=== PATIENT | female | born 1955 | race Caucasian/White ===

== ENCOUNTER → 2024-01-05 09:26 | Outpatient (BNVA) | payer MEDICARE, SELFPAY | PROVIDERS: PCP Family Medicine; Visit Provider Physician Assistant Surgical ==

== ENCOUNTER 2024-01-28 13:08 | Outpatient (AMB) | payer MEDICARE, SELFPAY ==
--- NOTE | 2024-01-28 08:20 | A.OFFVIS_ITS ---
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 She heard about our program from a friend. Her goal is to lose weight and achieve a healthy lifestyle as well as to improve, if not resolve, obesity related medical conditions, including hld. She reports first being concerned about her weight lifelong, highest weight to date was 242. Lowest weight was 138 pounds. Current weight is 242.7 pounds with a BMI of 40.3. She has tried multiple methods of weight loss including previous gastric banding approximately 15 years ago and removal about 5 years ago, fad diets without permanent results. She lives alone. 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 Dinner is at 5 pm. Breakfast: skip AM snack: skip Lunch: PB crackers, cottage cheese and fruit, cereal w banana and almond milk PM snack: skip Dinner: skip After dinner: pizza, chicken, Other snacks: cookies, crackers, ice cream, chocolate Liquids: selzer 48 oz daily, no soda, rare juice Alcohol/marijuana/tobacco intake: rare etoh, no cannabis, no tobacco Exercise: none, has gym membership at GERD score: 0 RAMÓN score: 1 ESS score: 2 QOL score: 124 PFSH Surgical History Hx of colonoscopy Hx of carpal tunnel repair History of nasal surgery History of removal of laparoscopic gastric banding device Hx of foot surgery Hx of laparoscopic gastric banding Family History Mother Breast cancer Father No problems noted. Son No problems noted. Daughter No problems noted. Social History Alcohol intake: current Alcohol intake frequency: holidays/special occasions only Patient Tobacco Use Status: Never used Tobacco Physical Exam Vital Signs: BMI result Body Mass Index 40.3 Telehealth Telehealth Telehealth Platform: Telephone Location of provider rendering services: practice address Location of patient: address on file Patient Identification confirmed using: Name, : Yes Telehealth method: voice only Patient verbally consented to treatment: Yes Patient verbally consented to billing insurance company: Yes Patient informed of any privacy concerns related to visit: Yes Minutes spent on Phone/Video with Pt.: 40 Assessment & Plan Assessment & Plan (1) Morbid obesity: Code(s): E66.01 - Morbid (severe) obesity due to excess calories Category: Medical Plan: This is a?68 yo female who will start our SWL program to prepare for bariatric surgery.? Blood work, CXR, ECG, Abd US and UGI have been ordered. She is being scheduled for initial consultations. She will start SWL classes and watch the first three videos before her next appointment. ? Adequate sleep of 7-8 hours per night discussed, awakening at 5 am and bed at 9 pm ? You stated that you have already purchased a body composition analyzer scale, so just be taurus eand check weight weekly. The best time to do this is first thing in the morning after going to the bathroom. 1. Nutritional counseling: Be sure to careful read the number of scoops per shake Start with 3 Premier Protein shakes, First shake (1 scoop in 10 oz unsweetened almond milk each) at 6am-8am, Second shake at 9am-11pm 1 protein bar (Atkins bar or fit crunch (16 gram protein, 190 calories, not the 240 calorie bar for fit crunch)) at 1pm-3pm. Dinner at 5pm (8 forks of protein and 8 forks of salad/vegetables). Meal to include lean meat (beef, fish, pork, turkey, chicken), cooked vegetables or a salad with olive oil and/or fruits (berries, pears, apples, kiwi). Avoid salt, breads, potatoes, rice, pasta, desserts. Another shake with 1 scoop in 8 oz unsweetened almond milk at 6pm-8pm. Try to drink 64 oz of water daily and avoid soda and juices. ?2. Each shake would be drunk slowly, like coffee in a period of 2 hours. ?3. Cut each bar in 4 pieces and eat each piece in 30 min ?to make each bar last 2 hours. ?4. I emphasized the importance of measuring accurately the food portion and measure it carefully when serving the food on the plate ?5. The meal portions include 8 full-size forks of meat and 8 full-size forks of salad. You always eat the meat portion but you can replace up to half of the forks of salad/vegetables with rice, potatoes or pasta, or a fruit ?if you like. The less you do it the better weight loss will be. ?6. One full-size fork is what can be scooped on the fork without falling aside and not what can be bit with the fork. Use regular forks like those you find in a typical restaurant. ?7.? Please send me weight measurements as soon as possible and then once a week. Always include your diet and exercise plan. Alternatively come weekly at the office for weight checks and send me the measurements. ?8. Exercise counseling: Begin by watching a stretching for beginners video. Start slowly and begin to stretch your muscles. You should do this before and after each exercise session to prevent injury. Please return to [facility] gym near your home. Ask the manager diabetes or one of the trainers how to use the machines if you are unfamiliar with them. Start elliptical with a resistance of 0. Increase resistance by 1 every 3 min to your most comfortable resistance with a max resistance of 6. Reduce the resistance by 1 every 3 minutes back down to 0 and repeat cycles for 300 calories. Alternatively, start treadmill with a speed of 2.3 and incline of 0, increasing incline by 1 every 3 minutes to the highest comfortable level (max 6 for now) then decrease in the same fashion. Repeat process to a goal of 300 calories. Goal of 2000 calories burned or more weekly. You may also consider use of the stationary bike. The easiest would be to chose the fat-burn or interval training program on the machine and do this u ntil you reach the 300 calorie goal. Alternatively, you can manually adjust the resistance in a similar fashion as mentioned above, (resistance of 2-8 with a goal speed of 12 mph). Tracking calories is essential. 9. Alternatively start walking outside daily, tracking calories with a goal of 300 calories per day, daily. You can download the amol Coine[employer]-IO which can track your time, distance and calories while walking outside. You press start in the amol when you start and then stop when you are finished. 10.? It is important to communicate weekly by text 11. Please get labs, EKG and chest X-Ray within 1 week. 12. Discussed and answered all questions regarding?obtained consent to participate in the [facility]?Registry. 13. Please follow the diet plan exactly, without any change. If you do not like something about the plan or you feel hungry, you need to communicate with me so I can help you revise the plan. You should not change the plan yourself. Text me at [phone] 14. Goal is to lose at least 12 pounds in the first month 15. Goal is to lose 10% of your weight before surgery, which is about 24 lbs. Ultimate weight goal: 218 lbs before surgery 16. Please look at our website [employer] for many more pictures and tons of great information. You will be prompted to create an account with your name and email. This is safe and secure. Patient is morbidly obese and is not considered stable at this time.?I spent a total of 70 minutes reviewing/updating records, examining the patient and co unseling the patient on weight management as detailed above. Orders: Orders Insulin Today E66.01 - Morbid (severe) obesity due to excess calories, E78.00 - Pure hypercholesterolemia, unspecified H Pylori Breath Test Today E66.01 - Morbid (severe) obesity due to excess calories, E78.00 - Pure hypercholesterolemia, unspecified Complete Blood Count Auto Diff Today E66.01 - Morbid (severe) obesity due to excess calories, E78.00 - Pure hypercholesterolemia, unspecified Lipid Panel Today E66.01 - Morbid (severe) obesity due to excess calories, E78.00 - Pure hypercholesterolemia, unspecified Vitamin B12 and Folate Today E66.01 - Morbid (severe) obesity due to excess calories, E78.00 - Pure hypercholesterolemia, unspecified Zinc Today E66.01 - Morbid (severe) obesity due to excess calories, E78.00 - Pure hypercholesterolemia, unspecified C Reactive Protein Today E66.01 - Morbid (severe) obesity due to excess calories, E78.00 - Pure hypercholesterolemia, unspecified Vitamin A Today E66.01 - Morbid (severe) obesity due to excess calories, E78.00 - Pure hypercholesterolemia, unspecified Ferritin Today E66.01 - Morbid (severe) obesity due to excess calories, E78.00 - Pure hypercholesterolemia, unspecified XR chest 2V Today E66.01 - Morbid (severe) obesity due to excess calories, E78.00 - Pure hypercholesterolemia, unspecified FL upper GI w air Today E66.01 - Morbid (severe) obesity due to excess calories, E78.00 - Pure hypercholesterolemia, unspecified Hemoglobin A1c Today E66.01 - Morbid (severe) obesity due to excess calories, E78.00 - Pure hypercholesterolemia, unspecified IRON PROFILE Today E66.01 - Morbid (severe) obesity due to excess calories, E78.00 - Pure hypercholesterolemia, unspecified Comprehensive Met. Panel Today E66.01 - Morbid (severe) obesity due to excess calories, E78.00 - Pure hypercholesterolemia, unspecified Vitamin B1 Today E66.01 - Morbid (severe) obesity due to excess calories, E78.00 - Pure hypercholesterolemia, unspecified TSH reflex Free T4 Today E66.01 - Morbid (severe) obesity due to excess calories, E78.00 - Pure hypercholesterolemia, unspecified Vitamin D 25-OH Total Today E66.01 - Morbid (severe) obesity due to excess calories, E78.00 - Pure hypercholesterolemia, unspecified US abdomen comp w elastography Today E66.01 - Morbid (severe) obesity due to excess calories, E78.00 - Pure hypercholesterolemia, unspecified ECG 12 lead EKG Today E66.01 - Morbid (severe) obesity due to excess calories, E78.00 - Pure hypercholesterolemia, unspecified Referrals Behavioral Health Referral E66.01 - Morbid (severe) obesity due to excess calories, E78.00 - Pure hypercholesterolemia, unspecified
[2024-01-28 08:21] VITALS: BMI 40.3
== END 2024-01-28 13:49 | disposition home or self-care (01) ==
LOC: HO.HBS 13:08
PROVIDERS: PCP Family Medicine; Visit Provider Physician Assistant Surgical
DX: E66.01 Morbid (severe) obesity due to excess calories (principal)
CPT/HCPCS: 99205

== ENCOUNTER → 2024-01-28 13:08 | Outpatient (BNVA) | payer MEDICARE, SELFPAY | PROVIDERS: PCP Family Medicine; Visit Provider Physician Assistant Surgical ==

== ENCOUNTER 2024-02-03 13:15 | Outpatient (AMB) | payer MEDICARE, SELFPAY ==
--- NOTE | 2024-02-03 13:17 | MHC.WMTHER ---
Intake Intake Visit Reasons: TV Intake Allergies No Known Allergies Allergy (Verified 01/05/24 09:42) PFSH Surgical History Hx of colonoscopy Hx of carpal tunnel repair History of nasal surgery History of removal of laparoscopic gastric banding device Hx of foot surgery Hx of laparoscopic gastric banding Family History Mother Breast cancer Father No problems noted. Son No problems noted. Daughter No problems noted. Social History Alcohol intake: current Alcohol intake frequency: holidays/special occasions only Patient Tobacco Use Status: Never used Tobacco Behavioral Health Assessment Weight Management Therapy Therapy Notes Details assessment for Weight management program. Presenting Concerns Referral Source WMP Provider. PT saw MB on 01/27 Reason for referral Completion of behavioral health assessment as part of process for weight-loss surgery. Precipitating Event Obesity. Patient stated I don't want to fat Living Situation Current Living Situation Own At risk of losing current housing? No Satisfied with current living situation? Yes Comments PT lives alone with her dog and her cat. Food/Weight/Diet Expectations of change Initial Goal is to lose 10% of her weight before surgery, which is about 24 lbs. Ultimate weight goal: 218 lbs. before surgery. PT feels good about this initial goal. current Meal plan is 3 shakes, 1 bar and 1 meal. PT reports she has been following it but it's been an adjusting experience. She would like to change eating habits, and stop avoiding social interactions due to her weight. Her hopes is to continue being active, have more energy, and live a longer and healthier life. History/Relationship with food PT reports she tends to eat more at night and snacks on things during the day. She also finds comfort on food, when depressed/sad or feels alone she eats more. She also don't like to cook, so she eats more things like snacks (PB crackers, chocolate bars, things she cooks for her dos like chicken, frozen pizza). . Example of meals before starting the program Breakfast: skip/ coffee w/ half and half and no sugar. Lunch: Skip. If hungry will have some crackers, a toast with butter, slide of pizza leftover. Dinner: Something easy like hot dogs, frozen pizza, cottage cheese with pineapple. Drink: seltzer water. Snacks: multiples at days (PB crackers, cheese crackers, a chocolate bar, cereal with almond milk, ice cream). History/Relationship with weight PT reports she has struggled with her weight her whole life. Lowest weight 130Lb around 2011, then in 2014 she was 160Lbs, after removed the lap band. Has been gaining weight steadily the last 10 years. In 2020 was 208Lbs. And since then has gained 40Lbs. 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 PT will need support pre-op as she disclosed issues with emotional eating. Telehealth Telehealth Telehealth Platform: Telephone Location of provider rendering services: practice address Location of patient: address on file Patient Identification confirmed using: Name, : Yes Telehealth method: voice only Patient verbally consented to treatment: Yes Patient verbally consented to billing insurance company: Yes Patient informed of any privacy concerns related to visit: No Minutes spent on Phone/Video with Pt.: 60 Coding Level of Care Code New Pt Tele Psy Diag Kamini ([id number]) Patient Type New Diagnoses Adjustment disorder with mixed disturbance of emotions and conduct F43.25 Adjustment disorder type: with mixed disturbance of emotions and conduct Time Spent (min) 60 Comment start time: 1:00- end time: 2:00pm
== END 2024-02-03 14:05 | disposition home or self-care (01) ==
LOC: HO.HBST 13:15
PROVIDERS: PCP Family Medicine; Visit Provider Counselor Mental Health
DX: F43.25 Adjustment disorder with mixed disturbance of emotions and conduct (principal)
CPT/HCPCS: 90791

== ENCOUNTER → 2024-02-03 13:15 | Outpatient (BNVA) | payer MEDICARE, SELFPAY | PROVIDERS: PCP Family Medicine; Visit Provider Counselor Mental Health ==

== ENCOUNTER 2024-02-06 09:24 | Outpatient (REF) | payer MEDICARE, SELFPAY ==
--- NOTE | ~2024-02-06 | XR_ITS ---
EXAMINATION: XR CHEST, 2 VIEWS CLINICAL INFORMATION: Morbid obesity. COMPARISON: None. TECHNIQUE: PA and lateral views of the chest were obtained. FINDINGS: Lungs are clear. No consolidation, pneumothorax, or pleural effusion. Cardiac and mediastinal contours are normal. Pulmonary vasculature is unremarkable. Trachea is midline. Mild degenerative disc disease in the midthoracic spine. No acute osseous findings. XR/XR chest 2V IMPRESSION: No acute cardiopulmonary findings. Electronically signed by: Juvenal Loco MD 03/01/2024 05:49 PM EDT
--- NOTE | ~2024-02-06 | US_ITS ---
EXAMINATION: US COMPLETE ABDOMEN WITH LIVER ELASTOGRAPHY CLINICAL INFORMATION: Morbid obesity. COMPARISON: None available. TECHNIQUE: Real-time imaging of the abdominal viscera. Noninvasive ultrasound liver fibrosis assessment is performed using Paloma ElastPQ point quantification shear wave elastography (pSWE) with a C5-2 MHz transducer. Multiple elastography samples are obtained. FINDINGS: PANCREAS: The visualized pancreatic head and body are normal in appearance. The remainder of the pancreas is obscured from visualization by the overlying bowel gas. ABDOMINAL AORTA: The proximal, middle, and distal aortic segments are normal in caliber. INFERIOR VENA CAVA: Visualized portions are normal. LIVER: The liver demonstrates increased echogenicity. No focal lesion or intrahepatic biliary duct dilatation. The right lobe measures 14.9 cm in length. The left lobe measures 8.6 cm in length. Portal flow is towards the liver (hepatopetal). Shear wave liver elastography median stiffness is 1.55 m/s (reference: normal median stiffness is 1.3 m/s or less). IQR/median stiffness to assess sampling precision is 0.70 (reference: good quality data set is IQR/median stiffness of 0.15 or less). GALLBLADDER: Normal. The gallbladder is physiologically distended without evidence of stones, sludge, polyps, wall thickening or pericholecystic fluid. COMMON BILE DUCT: Normal in caliber measuring 0.5 cm in diameter. RIGHT KIDNEY: Normal. No hydronephrosis. No renal calculi or focal parenchymal lesions. The kidney measures 10.5 cm in maximum dimension. LEFT KIDNEY: Normal. No hydronephrosis. No renal calculi . The kidney measures 10.8 cm in maximum dimension. A benign 1.8 cm Bosniak class I renal cyst is noted which requires no additional imaging or follow up. No solid renal masses are seen. SPLEEN: Normal. The spleen measures 9.7 cm in maximum dimension. FREE FLUID: None. US/US abdomen comp w elastography IMPRESSION: 1. Hepatic steatosis. 2. Liver elastography: In the absence of other known clinical signs, measurements rule out compensated advanced chronic liver disease. If there are known clinical signs, further testing may be needed for confirmation. REFERENCE: Society of Radiologists in Ultrasound Liver Stiffness Thresholds (2020): LIVER STIFFNESS THRESHOLDS: *Liver Stiffness equal or less than 1.3 m/s: High probability of being normal. *Liver Stiffness less than 1.7 m/s: In the absence of other known clinical signs, rules out compensated advanced chronic liver disease. *Liver Stiffness 1.7-2.1 m/s: Suggestive of compensated advanced chronic liver disease but need further test for confirmation. *Liver Stiffness over 2.1 m/s: Rules in compensated advanced chronic liver disease. *Liver Stiffness over 2.4 m/s: Suggestive of clinically significant portal hypertension. QUALITY OF DATA SET: *IQR/Median value equal or less than 0.15 implies a quality data set. *IQR/Median value over 0.15 implies a poor quality data set. SIGNIFICANT CHANGE FROM PRIOR EXAM: Significant change if liver stiffness measurement is 10% or greater from prior exam. OTHER CONSIDERATIONS: The stage of liver fibrosis may be overestimated in the setting of acute hepatitis, liver inflammation, elevated liver function tests, hepatic vascular congestion, obstructive cholestasis, non-fasting state, and infiltrative diseases such as amyloidosis and lymphoma. In some patients with NAFLD, the liver stiffness thresholds for compensated advanced chronic liver disease may be lower. In causes other than viral hepatitis and NAFLD, liver stiffness thresholds are not well established. Electronically signed by: David Persaud MD 02/19/2024 09:55 PM EDT
--- NOTE | 2024-02-06 10:24 | ECG_ITS ---
Test Reason : E66.01 Blood Pressure : / mmHG Vent. Rate : 069 BPM Atrial Rate : 069 BPM P-R Int : 176 ms QRS Dur : 092 ms QT Int : 422 ms P-R-T Axes : 055 007 067 degrees QTc Int : 452 ms Normal sinus rhythm Normal ECG No previous ECGs available Referred By: Mick Jorge Electronically Signed By:MARYLOU FRANCO
[2024-02-06 10:40] LABS: MANUAL DIFF FLAG NO
[2024-02-06 10:56] LABS: Basophils Percent Auto 0.7 % (0-2); Eosinophils Absolute Auto 0.1 X10*3/uL (0.0-0.4); Eosinophils Percent Auto 3.3 % (0-4); Hematocrit 39.8 % (37.0-47.0); Hemoglobin 13.5 g/dl (12.0-16.0); Imm Gran Abs Auto 0.01 X10*3/uL (0.00-0.03); Imm Gran Pct Auto 0.2 % (0.0-0.4); Lymphocytes Absolute Auto 1.2 X10*3/uL (1.2-4.9); Lymphocytes Percent Auto 28.2 % (20-40); Mean Corpuscular HGB Conc 33.9 g/dl (31.0-35.0); Mean Corpuscular Hemoglobin 29.5 pg (27.0-33.0); Mean Corpuscular Volume 87.1 fL (80.0-98.0); Mean Platelet Volume 9.8 fL (9.4-12.3); Monocytes Absolute Auto 0.4 X10*3/uL (0.1-1.2); Monocytes Percent Auto 8.3 % (2-11); Neutrophils Absolute Auto 2.5 x10*3/uL (2.0-8.3); Neutrophils Percent Auto 59.3 % (45-73); Platelet Count 274 X10*3/uL (160-400); Red Blood Count 4.57 X10*6/uL (4.20-5.50); Red Cell Distribution Width 13.1 % (11.0-16.0); White Blood Count 4.2 X10*3/uL (4.8-10.8)
[2024-02-06 11:02] LABS: Estimated Average Glucose 108 mg/dL; Hemoglobin A1c % 5.4 % (<6.0)
[2024-02-06 11:38] LABS: Alanine Aminotransferase 25 U/L (0-31); Albumin Level 4.4 g/dL (3.5-5.0); Alkaline Phosphatase 91 U/L (39-117); Anion Gap 11 (12-20); Aspartate Amino Transferase 28 U/L (5-31); Bilirubin Total 0.6 mg/dL (0.0-1.0); Blood Urea Nitrogen 26 mg/dL (9-16); C Reactive Protein 0.24 mg/dL (< or = 0.50); Calcium 9.7 mg/dL (8.4-10.2); Carbon Dioxide 27 mmol/L (22-29); Chloride 107 mmol/L (96-108); Cholesterol 230 mg/dL (<200); Estimated Glomerular Filt Rate > 60; Glucose Random 105 mg/dL (60-115); HDL Cholesterol 63 mg/dL (>40); Iron 57 mcg/dL (30-160); LDL Cholesterol Calculated 151 mg/dL (<100); Percent Iron Saturation 20 % (15-50); Potassium 4.3 mmol/L (3.3-5.1); Sodium 141 mmol/L (135-145); Total Iron Binding Capacity 280 mcg/dL (228-428); Total Protein 7.6 g/dL (6.5-8.0); Triglycerides 80 mg/dL (<150); Unsaturated Iron Binding 223 ug/dL
[2024-02-06 12:02] LABS: Ferritin 136 ng/mL (10-250); TSH reflex Free T4 1.83 uIU/mL (0.32-4.0); Vitamin D 25-OH Total 36.5 ng/mL (>30)
[2024-02-06 12:10] LABS: Folate 10.5 ng/mL (> or = 4.0); Vitamin B12 514 pg/mL (200-900)
[2024-02-06 12:17] LABS: Insulin 4 uU/mL (2-29)
[2024-02-11 01:09] LABS: Zinc 92 mcg/dL (60-130)
== END 2024-02-06 09:25 | disposition home or self-care (01) ==
LOC: HO.US 09:24
PROVIDERS: PCP Family Medicine; Visit Provider Physician Assistant Surgical
DX: Z13.1 Encounter for screening for diabetes mellitus (principal); E66.01 Morbid (severe) obesity due to excess calories; E78.00 Pure hypercholesterolemia, unspecified
CPT/HCPCS: 36415; 71046; 76700; 76981; 80053; 80061; 82306; 82607; 82728; 82746; 83036; 83525; 83540; 84425; 84443; 84590; 84630; 85025; 86140; 93005

== ENCOUNTER → 2024-02-10 09:09 | Outpatient (AMB) | payer MEDICARE, SELFPAY ==
--- NOTE | 2024-02-10 09:05 | MHC.WMTHER ---
Intake Intake Visit Reasons: VIDEO BH F/U Allergies No Known Allergies Allergy (Verified 01/05/24 09:42) PFSH Surgical History Hx of colonoscopy Hx of carpal tunnel repair History of nasal surgery History of removal of laparoscopic gastric banding device Hx of foot surgery Hx of laparoscopic gastric banding Family History Mother Breast cancer Father No problems noted. Son No problems noted. Daughter No problems noted. Social History Alcohol intake: current Alcohol intake frequency: holidays/special occasions only Patient Tobacco Use Status: Never used Tobacco Behavioral Health Assessment Weight Management Therapy Therapy Notes Details PT presents for a second session to continue BH assessment as part of surgical weight-loss program. Today client was provided with support while she was sharing information required for this assessment. PT was provided with psychoeducation about behavioral patterns nd cycle of responses which on her case are related to unhealthy eating habits. PT was also provided with strategies to be consistent and hold herself accountable as this is what she reported is one of her major issues. The Next session we still need to cover Mental health history to finish assessment, but at this point patient appears to be a great candidate for weight-loss surgery. Presenting Concerns Referral Source WMP Provider. PT saw MB on 01/27 Reason for referral Completion of behavioral health assessment as part of process for weight-loss surgery. Precipitating Event Obesity. Patient stated I don't want to fat Living Situation Current Living Situation Own At risk of losing current housing? No Satisfied with current living situation? Yes Comments PT lives alone with her dog and her cat. Food/Weight/Diet Expectations of change Initial Goal is to lose 10% of her weight before surgery, which is about 24 lbs. Ultimate weight goal: 218 lbs. before surgery. PT feels good about this initial goal. current Meal plan is 3 shakes, 1 bar and 1 meal. PT reports she has been following it but it's been an adjusting experience. She would like to change eating habits, and stop avoiding social interactions due to her weight. Her hopes is to continue being active, have more energy, and live a longer and healthier life. History/Relationship with food PT reports she tends to eat more at night and snacks on things during the day. She also finds comfort on food, when depressed/sad or feels alone she eats more. She also don't like to cook, so she eats more things like snacks (PB crackers, chocolate bars, things she cooks for her dos like chicken, frozen pizza). . Example of meals before starting the program Breakfast: skip/ coffee w/ half and half and no sugar. Lunch: Skip. If hungry will have some crackers, a toast with butter, slide of pizza leftover. Dinner: Something easy like hot dogs, frozen pizza, cottage cheese with pineapple. Drink: seltzer water. Snacks: multiples at days (PB crackers, cheese crackers, a chocolate bar, cereal with almond milk, ice cream). History/Relationship with weight PT reports she has struggled with her weight her whole life. Lowest weight 130Lb around 2011, then in 2014 she was 160Lbs, after removed the lap band. Has been gaining weight steadily the last 10 years. In 2020 was 208Lbs. And since then has gained 40Lbs. History/Relationship with dieting Had the lap band approximately in 2006 years ago and removal about 5 years ago. She has tried Nutrysystem, weight watchers, Ketto diet, multiple types of diets. PT reports that living alone and not having anyone for support makes her efforts hard to stick to it. Binge Eating Do you frequently eat large amounts of food in short periods of time, not feeling physically hungry? Yes Do you feel out of control when you eat a large amount of food in a short period of time? No Do you eat large amounts of food rapidly and typically alone? No Night Eating Do you wake up at least once during the night to eat? No If you wake up in the night, do you find that it is necessary to eat something in order to fall back asleep? No Do you have little or no appetite in the morning and feel very hungry in the evening, often overeating between dinner and when you go to bed? Yes Social History Family history and relationship PT is . She has 3 adult children (2 boys and 1 girl) and 1 grandchild. They live close by but they have a difficult relationship at times when together due to ongoing MH challenges but she is closed to them on general, specially with her oldest son. Parents are . She has a sister in [place] and a brother in [place]. Their relationship is good now. Parental/Familial college or university registrar obligations None Developmental history and status Had reading issues in elementary school. Math issues in HS. She believes was due learning disabilities but never tested. Currently [facility]. Social support Siblings. Community support None. Congregation/Spirituality None Cultural/Ethnic information . Legal Involvement and History Current or historical involvement with the legal system? None reported. Education Highest grade completed Associate degree. Has a degree in Medical assisting. 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 Preferred learning style Learn by doing Currently enrolled in educational program? No Interested in further educational program? 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 No Meaningful activities [employer], [employer] projects. Financial Situation Describe current financial situation Comfortable and Occasional struggle Service Service? No Medical and Physical Health Summary Additional Medical History not covered in history None reported. Sexual History concerns None reported. Physical exam in the last year? Yes Pain Screening Current pain? Yes Pain in the last few months? Yes Comments back and shoulder issues. Neuropathy. Questionnaires Binge Eating Scale Group 1 A. I don't feel self-conscious about my wt. or body size when I'm with others. B. I feel concerned about how I look to others, but it normally does not make me fell disappointed with myself C. I do get self-conscious about my appearance and wt. which makes me feel disappointed in myself. D. I feel very self-conscious about my wt. and frequently I feel intense shame and disgust for myself. I try to avoid social contacts because of my self-consciousness. Response Group 1: C Group 2 A. I don't have any difficulty eating slowly in the proper manner. B. Although I seem to gobble down foods, I don't end up feeling stuffed because of eating to much. C. At times, I tend to eat quickly and then, I feel uncomfortably full afterwards. D. I have the habit of bolting down my food, without really chewing it. When this happens I usually feel uncomfortably stuffed because I've eaten to much. Response Group 2: A Group 3 A. I feel capable to control my eating urges when I want to. B. I feel like I have failed to control my eating more than the average person. C. I feel utterly helpless when it comes to feeling in control of my eating urges. D. Because I feel so helpless about controlling my eating I have become very desperate about trying to get control. Response Group 3: B Group 4 A. I don't have the habit of eating when I'm bored. B. I sometimes eat when I'm bored, but often I'm able to get busy and get my mind off food. C. I have a regular habit of eating when I'm bored, but occasionally, I can use some other activity to get my mind off eating. D. I have a strong habit of eating when I'm bored. Nothing seems to help me breath the habit. Response Group 4: C Group 5 A. I'm usually physically hungry when I eat something. B. Occasionally, I eat something on impulse even though I really am not hungry. C. I have the regular habit of eating foods, that I might not really enjoy, to satisfy a hungry feeling even though physically, I don't need the food. D. Although I'm not physically hungry, I get a hungry feeling in my mouth that only seems to be satisfied when I eat a food, like sandwich, that fills my mouth. Sometimes, when I eat the food to satisfy my mouth hunger, I then spit the food out so I won't gain weight. Response Group 5: B Group 6 A. I don't feel any guilt or self-hate after I overeat. B. After I overeat, occasionally I feel guilt or self-hate. C. Almost all the time I experience strong guilt or self-hate after I overeat. Response Group 6: C Group 7 A. I don't lose total control of my eating when dieting even after periods when I overeat. B. Sometimes when I eat a forbidden food on a diet, I feel like I blew it and eat even more. C. Frequently, I have the habit of saying to myself, I've blown it now, why not go all the way, when I overeat on a diet. When that happens I eat more. D. I have a regular habit of starting a strict diets for myself but I break the diets by going on an eating binge. My life seems to be either a feast or famine. Response Group 7: D Group 8 A. I rarely eat so much food that I feel uncomfortably stuffed afterwards. B. Usually about once a month, I each such a quantity of food, I end up feeling very stuffed. C. I have regular periods during the month when I eat large amounts of food, either at mealtime or at snacks. D. I eat so much food that I regularly feel quite uncomfortable after eating and sometimes a bit nauseous. Response Group 8: C Group 9 A. My level of calorie intake does not go up very high or go down very low on a regular basis. B. Sometimes after I overeat, I will try to reduce my caloric intake to almost nothing to compensate for the excess calories I've eaten. C. I have a regular habit of overeating during the night. It seems that my routine is not to be hungry in the morning but overeat in the evening. D. In my adult years, I have had week-long periods where I practically starve myself. This follows periods when I overeat. It seems I live a life of either feast or famine. Response Group 9: C Group 10 A. I usually am able to stop eating when I want to. I know when enough is enough. B. Every so often, I experience a compulsion to eat which I can't seem to control. C. Frequently, I experience strong urges to eat which I seem unable to control, but at other times I can control my eating urges. D. I feel incapable of controlling urges to eat. I have a fear of not being able to stop eating voluntarily. Response Group 10: C Group 11 A. I don't have any problem stopping eating when I feel full. B. I usually can stop eating when I feel full but occasionally overeat leaving me feeling uncomfortably stuffed. C. I have a problem stopping eating once I start and usually I feel uncomfortably stuffed after I eat a meal. D. Because I have a problem not being able to stop eating when I want, I sometimes have to induce vomiting to relieve my stuffed feeling. Response Group 11: C Group 12 A. I seem to eat just as much when I'm with others, Family social gatherings as when I'm by myself. B. Sometimes, when I'm with other persons, I don't eat as much as I want to eat because I'm self-conscious about my eating. C. Frequently, I eat only a small amount of food when others are present, because I'm very embarrassed about my eating. D. I feel so ashamed about overeating that I pick times to overeat when I know no one will see me. I feel like a closet eater. Response Group 12: B Group 13 A. I eat three meals a day with only an occasional between meal snack. B. I eat 3 meals a day, but I also normally snack between meals. C. When I am snacking heavily, I get in the habit of skipping regular meals. D. There are regular periods when I seem to be continually eating, with no planned meals. Response Group 13: C Group 14 A. I don't think much about trying to control unwanted eating urges. B. At least some of the time, I feel my thoughts are pre-occupied with trying to control my eating urges. C. I feel that frequently I spend much time thinking about how much I ate or about trying not to eat anymore. D. It seems to me that most of my waking hours are pre-occupied by thoughts about eating or not eating. I feel like I'm constantly struggling not to eat. Response Group 14: D Group 15 A. I don't think about food a great deal. B. I have strong craving for food but they last only for brief periods of time. C. I have days when I can't seem to think about anything else but food. D. Most of my days seem to be pre-occupied with thoughts about food. I feel like I live to eat. Response Group 15: C Group 16 A. I usually know whether or not I'm physically hungry. I take the right portion of food to satisfy me. B. Occasionally, I feel uncertain about knowing whether or not I'm physically hungry. A these times it's hard to know how much food I should take to satisfy me. C. Even though I might know how many calories I should eat, I don't have any idea what is a normal amount of food for me. Response Group 16: C Binge Eating Score: 29 Score less than 17 Minimal Risk Score between 18-26 Moderate Risk Score between 27-46 High Risk Assessment & Plan Assessment & Plan (1) Adjustment disorder: Code(s): F43.20 - Adjustment disorder, unspecified Plan We will meet again on 02/26/24 as patient would benefit from the support as part of personal accountability goals. BES will be reviwed as patient marked multiple options on same questions. Telehealth Telehealth Telehealth Platform: [facility] Location of provider rendering services: other Location of patient: address on file Patient Identification confirmed using: Name, : Yes Telehealth method: voice only Patient verbally consented to treatment: Yes Patient verbally consented to billing insurance company: Yes Patient informed of any privacy concerns related to visit: No Minutes spent on Phone/Video with Pt.: 60 Coding Level of Care Code Established Pt Tele Psytx >53 mins ([id number]) Patient Type Established Diagnoses Adjustment disorder F43.20
== END ==
LOC: HO.HBST 09:09
PROVIDERS: PCP Family Medicine; Visit Provider Counselor Mental Health
DX: F43.20 Adjustment disorder, unspecified (principal)
CPT/HCPCS: 90837

== ENCOUNTER → 2024-02-10 09:09 | Outpatient (BNVA) | payer MEDICARE, SELFPAY | PROVIDERS: PCP Family Medicine; Visit Provider Counselor Mental Health ==

== ENCOUNTER 2024-03-01 13:12 | Outpatient (AMB) | payer MEDICARE, SELFPAY ==
--- NOTE | 2024-03-01 13:03 | A.OFFVIS_ITS ---
VS Expanded 03/01/24 13:07 Height 5 ft 5 in Weight 225 lb 8 oz BMI 37.5 Body Fat % 50.8 Intake Visit Reasons: (TV) F/U SWL Allergies No Known Allergies Allergy (Verified 01/05/24 09:42) HPI Comments Details: Patient is a 68 year old female who returns to the SWL program. She was joseekevyn woodruff seen on 01/28/24 with a weight of 242.7 pounds with a BMI of 40.3. Weight today is 225.8 pounds with a BMI of 37.5. She has lost approximately 16.9 lb or 6.9% total body weight loss. 3 Premier Protein shakes, First shake (1 scoop in 10 oz unsweetened almond milk each) at 6am-8am, Second shake at 9am-11pm 1 protein bar (Atkins bar or fit crunch (16 gram protein, 190 calories, not the 240 calorie bar for fit crunch)) at 1pm-3pm. Dinner at 5pm (8 forks of protein and 8 forks of salad/vegetables). Another shake with 1 scoop in 8 oz unsweetened almond milk at 6pm-8pm. Exercise: treadmill 2 mi, 200 kevin, 3-4 days per week PFSH Surgical History Hx of colonoscopy Hx of carpal tunnel repair History of nasal surgery History of removal of laparoscopic gastric banding device Hx of foot surgery Hx of laparoscopic gastric banding Family History Mother Breast cancer Father No problems noted. Son No problems noted. Daughter No problems noted. Social History Alcohol intake: current Alcohol intake frequency: holidays/special occasions only Patient Tobacco Use Status: Never used Tobacco Physical Exam Vital Signs: BMI result Body Mass Index 37.5 Telehealth Telehealth Telehealth Platform: Telephone Location of provider rendering services: practice address Location of patient: address on file Patient Identification confirmed using: Name, : Yes Telehealth method: voice only Patient verbally consented to treatment: Yes Patient verbally consented to billing insurance company: Yes Patient informed of any privacy concerns related to visit: Yes Minutes spent on Phone/Video with Pt.: 15 Assessment & Plan Assessment & Plan (1) Morbid obesity: Code(s): E66.01 - Morbid (severe) obesity due to excess calories Category: Medical Plan: Patient will continue her current meal plan as this is working very well for her. She was encouraged to increase her exercise tolerance as she is able. She is very satisfied with her current weight loss and has been encouraged to text weekly which she has been doing.
[2024-03-01 13:07] VITALS: BMI 37.5
== END 2024-03-01 14:30 | disposition home or self-care (01) ==
LOC: HO.HBS 13:12
PROVIDERS: PCP Family Medicine; Visit Provider Physician Assistant Surgical
DX: E66.01 Morbid (severe) obesity due to excess calories (principal); Z68.37 Body mass index [BMI] 37.0-37.9, adult
CPT/HCPCS: 98967

== ENCOUNTER → 2024-03-01 13:12 | Outpatient (BNVA) | payer MEDICARE, SELFPAY | PROVIDERS: PCP Family Medicine; Visit Provider Physician Assistant Surgical ==

== ENCOUNTER → 2024-03-03 11:19 | Outpatient (BNVA) | payer MEDICARE, SELFPAY | PROVIDERS: PCP Family Medicine; Visit Provider Counselor Mental Health ==

== ENCOUNTER → 2024-03-03 11:19 | Outpatient (AMB) | payer MEDICARE, SELFPAY ==
--- NOTE | 2024-03-03 11:25 | A.OFFWM_ITS ---
Intake Intake Visit Reasons: (TV) BH F/U Allergies No Known Allergies Allergy (Verified 01/05/24 09:42) PFSH Surgical History Hx of colonoscopy Hx of carpal tunnel repair History of nasal surgery History of removal of laparoscopic gastric banding device Hx of foot surgery Hx of laparoscopic gastric banding Family History Mother Breast cancer Father No problems noted. Son No problems noted. Daughter No problems noted. Social History Alcohol intake: current Alcohol intake frequency: holidays/special occasions only Patient Tobacco Use Status: Never used Tobacco Behavioral Health Assessment Weight Management Therapy Therapy Notes Details PT presents for a follow up visit via Telehealth. Today we were able to finish assessment and PT has been cleared from standpoint. PT disclosed a history of anxiety with panic SX and depression. She takes prescribed medication by her PCP and feels table. She has not been in counseling since before [facility] and reports feeling stable and in no need to return to counseling. PT denied any safety concerns, past crisis or any hospitalizations. There is no substance use issues or other addictive behavior reported. PT is a very active women, and functioning is intact. PHQ-9 scores showed no active Sx of depression; despite moderate-high BES scores, we have reviewed each item and patient doesn;t have concerns with emotional or binge eating, and she has made marked changes on eating behavior leading to weight loss. PT will be seen again in a month for support. Presenting Concerns Referral Source [facility] Provider. PT saw LORENA on 01/27 Reason for referral Completion of behavioral health assessment as part of process for weight-loss surgery. Precipitating Event Obesity. Patient stated I don't want to fat Living Situation Current Living Situation Own At risk of losing current housing? No Satisfied with current living situation? Yes Comments PT lives alone with her dog and her cat. Food/Weight/Diet Expectations of change Initial Goal is to lose 10% of her weight before surgery, which is about 24 lbs. Ultimate weight goal: 218 lbs. before surgery. PT feels good about this initial goal. current Meal plan is 3 shakes, 1 bar and 1 meal. PT reports she has been following it but it's been an adjusting experience. She would like to change eating habits, and stop avoiding social interactions due to her weight. Her hopes is to continue being active, have more energy, and live a longer and healthier life. History/Relationship with food PT reports she tends to eat more at night and snacks on things during the day. She also finds comfort on food, when depressed/sad or feels alone she eats more. She also don't like to cook, so she eats more things like snacks (PB crackers, chocolate bars, things she cooks for her dos like chicken, frozen pizza). . Example of meals before starting the program Breakfast: skip/ coffee w/ half and half and no sugar. Lunch: Skip. If hungry will have some crackers, a toast with butter, slide of pizza leftover. Dinner: Something easy like hot dogs, frozen pizza, cottage cheese with pineapple. Drink: seltzer water. Snacks: multiples at days (PB crackers, cheese crackers, a chocolate bar, cereal with almond milk, ice cream). History/Relationship with weight PT reports she has struggled with her weight her whole life. Lowest weight 130Lb around 2011, then in 2014 she was 160Lbs, after removed the lap band. Has been gaining weight steadily the last 10 years. In 2020 was 208Lbs. And since then has gained 40Lbs. History/Relationship with dieting Had the lap band approximately in 2006 years ago and removal about 5 years ago. She has tried Nutrysystem, weight watchers, Ketto diet, multiple types of diets. PT reports that living alone and not having anyone for support makes her efforts hard to stick to it. Binge Eating Do you frequently eat large amounts of food in short periods of time, not feeling physically hungry? Yes Do you feel out of control when you eat a large amount of food in a short period of time? No Do you eat large amounts of food rapidly and typically alone? No Night Eating Do you wake up at least once during the night to eat? No If you wake up in the night, do you find that it is necessary to eat something in order to fall back asleep? No Do you have little or no appetite in the morning and feel very hungry in the evening, often overeating between dinner and when you go to bed? Yes Social History Family history and relationship PT is . She has 3 adult children (2 boys and 1 girl) and 1 grandchild. They live close by but they have a difficult relationship at times when together due to ongoing MH challenges but she is closed to them on general, specially with her oldest son. Parents are . She has a sister in [place] and a brother in [place]. Their relationship is good now. 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 Math issues in HS. She believes was due learning disabilities but never tested. Currently WNL. Social support Siblings. Community support None. Congregational/Spirituality None Cultural/Ethnic information . Legal Involvement and History Current or historical involvement with the legal system? None reported. Education Highest grade completed Associate degree. Has a degree in Medical assisting. 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 Preferred learning style Learn by doing Currently enrolled in educational program? No Interested in further educational program? 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 No Meaningful activities kayaking, [employer] projects. Financial Situation Describe current financial situation Comfortable and Occasional struggle Service Service? No Mental Health and Addiction Treatment Current/Past substance abuse? No Comments Alcohol: Social drinking. couple times at year, 1-2 drinks. However, reports she wilson't drink since started the program. Cigarettes/Tobacco: None Cannabis/Edibles: None. Current/Past addictive behavior concerns? No Psychiatric history PT reports she suffers from depression, anxiety and panic symptoms. Her PCP prescribes her with: - Alprazolam 0.5mg 1 at day as needed; s he uses 1-2 times at week. Mainly for panic Sx. - Escitalopram 20mg, 1 at day. for depre ssion. She is not in counseling now, but has been in the past. Last time she had therapy was before Covid. PT reports she is stable and doesn't feel in need to have counseling now. Denies ever been in MH crisis or hospitalized for BH. Ther eis no reported history of current concerns with self-harm/other-harm. Medical and Physical Health Summary Additional Medical History not covered in history None reported. Sexual History concerns None reported. Physical exam in the last year? Yes Pain Screening Current pain? Yes Pain in the last few months? Yes Comments back and shoulder issues. Neuropathy. Medications Is the patient compliant with medications? Yes Does the patient have De Paz Guardian in place? Not applicable Does the patient use complimentary health approaches? No Trauma/Abuse History History of trauma? No Questionnaires PHQ-9 Over the last 2 weeks, how often have you been bothered by any of the following problems? 1. Little interest or pleasure in doing things: not at all 2. Feeling down, depressed, or hopeless: not at all 3. Trouble falling or staying asleep, or sleeping too much: not at all 4. Feeling tired or having little energy: several days 5. Poor appetite or overeating: not at all 6. Feeling bad about yourself - or that you are a failure or have let yourself or your family down: more than half the days 7. Trouble concentrating on things, such as reading the newspaper or watching television: not at all 8. Moving or speaking so slowly that other people could have noticed. Or the opposite - being so fidgety or restless that you have been moving around a lot more than usual: not at all 9. Thoughts that you would be better off or of hurting yourself in some way: not at all Total score: 3 Depression Screening Interpretation: Negative Depression Screening Done: Yes 88063 - PHQ-9 Billing: Yes Source: Developed by Drs. Denver Paulson, Kristin Robertson, Ildefonso Villegas and colleagues, with an educational ifeoma from [employer]. Binge Eating Scale Group 1 A. I don't feel self-conscious about my wt. or body size when I'm with others. B. I feel concerned about how I look to others, but it normally does not make me fell disappointed with myself C. I do get self-conscious about my appearance and wt. which makes me feel disappointed in myself. D. I feel very self-conscious about my wt. and frequently I feel intense shame and disgust for myself. I try to avoid social contacts because of my self- consciousness. Response Group 1: C Group 2 A. I don't have any difficulty eating slowly in the proper manner. B. Although I seem to gobble down foods, I don't end up feeling stuffed because of eating to much. C. At times, I tend to eat quickly and then, I feel uncomfortably full afterwards. D. I have the habit of bolting down my food, without really chewing it. When this happens I usually feel uncomfortably stuffed because I've eaten to much. Response Group 2: A Group 3 A. I feel capable to control my eating urges when I want to. B. I feel like I have failed to control my eating more than the average person. C. I feel utterly helpless when it comes to feeling in control of my eating urges. D. Because I feel so helpless about controlling my eating I have become very desperate about trying to get control. Response Group 3: B Group 4 A. I don't have the habit of eating when I'm bored. B. I sometimes eat when I'm bored, but often I'm able to get busy and get my mind off food. C. I have a regular habit of eating when I'm bored, but occasionally, I can use some other activity to get my mind off eating. D. I have a strong habit of eating when I'm bored. Nothing seems to help me breath the habit. Response Group 4: C Group 5 A. I'm usually physically hungry when I eat something. B. Occasionally, I eat something on impulse even though I really am not hungry. C. I have the regular habit of eating foods, that I might not really enjoy, to satisfy a hungry feeling even though physically, I don't need the food. D. Although I'm not physically hungry, I get a hungry feeling in my mouth that only seems to be satisfied when I eat a food, like sandwich, that fills my mouth. Sometimes, when I eat the food to satisfy my mouth hunger, I then spit the food out so I won't gain weight. Response Group 5: B Group 6 A. I don't feel any guilt or self-hate after I overeat. B. After I overeat, occasionally I feel guilt or self-hate. C. Almost all the time I experience strong guilt or self-hate after I overeat. Response Group 6: C Group 7 A. I don't lose total control of my eating when dieting even after periods when I overeat. B. Sometimes when I eat a forbidden food on a diet, I feel like I blew it and eat even more. C. Frequently, I have the habit of saying to myself, I've blown it now, why not go all the way, when I overeat on a diet. When that happens I eat more. D. I have a regular habit of starting a strict diets for myself but I break the diets by going on an eating binge. My life seems to be either a feast or famine. Response Group 7: D Group 8 A. I rarely eat so much food that I feel uncomfortably stuffed afterwards. B. Usually about once a month, I each such a quantity of food, I end up feeling very stuffed. C. I have regular periods during the month when I eat large amounts of food, either at mealtime or at snacks. D. I eat so much food that I regularly feel quite uncomfortable after eating and sometimes a bit nauseous. Response Group 8: C Group 9 A. My level of calorie intake does not go up very high or go down very low on a regular basis. B. Sometimes after I overeat, I will try to reduce my caloric intake to almost nothing to compensate for the excess calories I've eaten. C. I have a regular habit of overeating during the night. It seems that my routine is not to be hungry in the morning but overeat in the evening. D. In my adult years, I have had week-long periods where I practically starve myself. This follows periods when I overeat. It seems I live a life of either feast or famine. Response Group 9: C Group 10 A. I usually am able to stop eating when I want to. I know when enough is enough. B. Every so often, I experience a compulsion to eat which I can't seem to control. C. Frequently, I experience strong urges to eat which I seem unable to control, but at other times I can control my eating urges. D. I feel incapable of controlling urges to eat. I have a fear of not being able to stop eating voluntarily. Response Group 10: C Group 11 A. I don't have any problem stopping eating when I feel full. B. I usually can stop eating when I feel full but occasionally overeat leaving me feeling uncomfortably stuffed. C. I have a problem stopping eating once I start and usually I feel uncomfortably stuffed after I eat a meal. D. Because I have a problem not being able to stop eating when I want, I sometimes have to induce vomiting to relieve my stuffed feeling. Response Group 11: C Group 12 A. I seem to eat just as much when I'm with others, Family social gatherings as when I'm by myself. B. Sometimes, when I'm with other persons, I don't eat as much as I want to eat because I'm self-conscious about my eating. C. Frequently, I eat only a small amount of food when others are present, because I'm very embarrassed about my eating. D. I feel so ashamed about overeating that I pick times to overeat when I know no one will see me. I feel like a closet eater. Response Group 12: B Group 13 A. I eat three meals a day with only an occasional between meal snack. B. I eat 3 meals a day, but I also normally snack between meals. C. When I am snacking heavily, I get in the habit of skipping regular meals. D. There are regular periods when I seem to be continually eating, with no planned meals. Response Group 13: C Group 14 A. I don't think much about trying to control unwanted eating urges. B. At least some of the time, I feel my thoughts are pre-occupied with trying to control my eating urges. C. I feel that frequently I spend much time thinking about how much I ate or about trying not to eat anymore. D. It seems to me that most of my waking hours are pre-occupied by thoughts about eating or not eating. I feel like I'm constantly struggling not to eat. Response Group 14: D Group 15 A. I don't think about food a great deal. B. I have strong craving for food but they last only for brief periods of time. C. I have days when I can't seem to think about anything else but food. D. Most of my days seem to be pre-occupied with thoughts about food. I feel like I live to eat. Response Group 15: C Group 16 A. I usually know whether or not I'm physically hungry. I take the right portion of food to satisfy me. B. Occasionally, I feel uncertain about knowing whether or not I'm physically hungry. A these times it's hard to know how much food I should take to satisfy me. C. Even though I might know how many calories I should eat, I don't have any idea what is a normal amount of food for me. Response Group 16: C Binge Eating Score: 29 Score less than 17 Minimal Risk Score between 18-26 Moderate Risk Score between 27-46 High Risk Assessment & Plan Assessment & Plan (1) Panic disorder: Code(s): F41.0 - Panic disorder [episodic paroxysmal anxiety] (2) Depression, unspecified: Code(s): F32.A - Depression, unspecified Qualifiers: Major depression recurrence: recurrent Major depression episode severity: unspecified Plan PT has been cleared from BH standpoint. She will be seen in 1 month for support and continue working on habit changes, Sx management and weight-loss journey. Next amol: 03/31/2024 at 11am via Telehealth. Telehealth Telehealth Telehealth Platform: [facility] Location of provider rendering services: other Location of patient: address on file Patient Identification confirmed using: Name, : Yes Telehealth method: voice only Patient verbally consented to treatment: Yes Patient verbally consented to billing insurance company: Yes Patient informed of any privacy concerns related to visit: No Minutes spent on Phone/Video with Pt.: 45 Coding Level of Care Code Established Pt Tele Psytx 45 mins ([id number]) Patient Type Established Diagnoses Panic disorder F41.0 Depression, unspecified F32.A Major depression recurrence: recurrent Major depression episode severity: unspecified Time Spent (min) 45 Comment Start Time: 11:15am - End time: 12:00pm
== END ==
LOC: HO.HBST 11:19
PROVIDERS: PCP Family Medicine; Visit Provider Counselor Mental Health
DX: F41.0 Panic disorder [episodic paroxysmal anxiety] (principal); F32.A Depression, unspecified
CPT/HCPCS: 90834

== ENCOUNTER 2024-03-22 07:58 | Outpatient (AMB) | payer MEDICARE, SELFPAY ==
--- NOTE | 2024-03-22 09:56 | A.OFFVIS_ITS ---
VS Expanded 03/22/24 10:25 Height 5 ft 5 in Weight 219 lb 4 oz BMI 36.5 Body Fat % 49.2 Body Fat Mass 107.9 Fat Free Mass 111.4 Visceral Fat Rating 18 Body Water % 34.8 Body Water Mass 76.3 Basal Metabolic Rate/Score 1,446 Intake Visit Reasons: TV Consult/Transfer Mick Allergies No Known Allergies Allergy (Verified 03/22/24 09:56) Medication List - Last Reconciled 03/22/24 by Elmer Curiel MD alprazolam (Xanax) 0.5 mg PO BEDTIME PRN atorvastatin 10 mg PO DAILY escitalopram oxalate 20 mg PO DAILY gabapentin 100 mg PO DAILY HPI HPI TV Consult/Transfer Mick: Details: Start time: 9.45am, End time: 10.32am ?I spent 42 minutes speaking with the patient on the phone plus an additional 5 minutes reviewing and updating records for a total of 47 minutes HPI Comments Details: Overall weight loss: 18lbs, or 7.6% TBWL Is doing powdered Premier shakes (1 scoop in almond milk), one Fit Crunch protein bar and one meal at dinner (8 forks of protein and 8 forks of salad or vegetables) Exercise: Gym x3/wk doing treadmill for 300 calories PFSH Medical History (Updated 03/22/24 @ 10:30 by Elmer Curiel MD) Anxiety Depression Neuropathy Surgical History Hx of colonoscopy Hx of carpal tunnel repair History of nasal surgery History of removal of laparoscopic gastric banding device Hx of foot surgery Hx of laparoscopic gastric banding Family History Mother Breast cancer Father No problems noted. Son No problems noted. Daughter No problems noted. Social History Alcohol intake: current Alcohol intake frequency: holidays/special occasions only Patient Tobacco Use Status: Never used Tobacco Telehealth Telehealth Telehealth Platform: Telephone Location of provider rendering services: practice address Location of patient: address on file Patient Identification confirmed using: Name, : Yes Telehealth method: voice only Patient verbally consented to treatment: Yes Patient verbally consented to billing insurance company: Yes Patient informed of any privacy concerns related to visit: Yes Minutes spent on Phone/Video with Pt.: 47 Assessment & Plan Assessment & Plan (1) Obesity: Code(s): E66.9 - Obesity, unspecified Category: Medical Qualifiers: Obesity type: due to excess calories Obesity classification: adult class 2 (BMI 35 - 39.9) Serious obesity comorbidity presence: with serious comorbidity Body mass index: BMI 36.0-36.9 Qualified Code(s): E66.812 - Obesity, class 2; E66.01 - Morbid (severe) obesity due to excess calories; Z68.36 - Body mass index [BMI] 36.0-36.9, adult Plan: 1. Plan for lap sleeve gastrectomy including upper GI endoscopy. All tests has been completed and reviewed and the patient is cleared for the surgery. ?If diaphragmatic or ventral hernias are present at time of surgery, these will be repaired laparoscopically as well. Risks and complications were discussed in detail including possible conversion to an open procedure, anastomotic leak, bleeding requiring transfusion, small bowel obstruction, , DVT and pulmonary embolism, cardiac, or pulmonary complications, as usp compl ications such as anastomotic ulcer, insufficient weight loss and vitamin deficiencies. I emphasized the importance of close follow-up, adherence to instructions and good communication. So far she has proven to be an excellent communicator and very compliant with all our directions accomplishing a great weight loss. I believe that she is an excellent candidate and she is ready. 2. Continue same meal plan of powdered Premier shakes (1 scoop in almond milk), one Fit Crunch protein bar and one meal at dinner (8 forks of protein and 8 forks of salad or vegetables) 3. Exercise: continue Gym x3/wk doing treadmill for 300 calories 4. The best choice would be to purchase a stationary bike, elliptical or treadmill at home that can track calories. Let me know if you do so I can give you an exercise plan. 5. Please send me weight measurements weekly on Mondays
[2024-03-22 10:25] VITALS: BMI 36.5
== END 2024-03-22 10:33 | disposition home or self-care (01) ==
LOC: HO.HBS 07:58
PROVIDERS: PCP Family Medicine; Visit Provider Surgery
DX: E66.812 Obesity, class 2 (principal); Z68.36 Body mass index [BMI] 36.0-36.9, adult
CPT/HCPCS: 99443

== ENCOUNTER → 2024-03-22 07:58 | Outpatient (BNVA) | payer MEDICARE, SELFPAY | PROVIDERS: PCP Family Medicine; Visit Provider Surgery ==